=== PATIENT | male | born 1965 | race Caucasian/White ===

== ENCOUNTER 2020-12-01 05:34 | Outpatient (CLI) | payer OTHER ==
[~2020-12-01 05:34] MED LIST: EZET10TA23 PO; FISH OIL PO; HYDROCODON PO; LISI10TA2 PO; LOSA1TAB15 PO; LVT.088T PO; MTF500T PO; [UNRECOGNIZED DRUG - REMARK]
[2020-12-01] MEDS ORDERED: ACHYD1T PO (12:59)
[2020-12-01] MEDS ORDERED: IBUP-1780 PO (12:59)
[2020-12-01] MEDS ORDERED: ASPI-999 PO (12:59)
[2020-12-01] MEDS ORDERED: [UNRECOGNIZED DRUG - CODE] MC (12:59)
== END 2020-12-01 14:54 | disposition home or self-care (01) ==
LOC: PREOP 05:34
PROVIDERS: ATTEND Surgery
DX: Z01.818 Encounter for other preprocedural examination (principal)

== ENCOUNTER 2020-12-06 09:51 | Day surgery (SDC) | payer OTHER ==
[~2020-12-06] VITALS: Ht 177.8 cm; Wt 118.0 kg
[~2020-12-06 09:51] MED LIST changes: +ACHYD1T PO; +ASPI-999 PO; +IBUP-1780 PO; +LACTATED RINGERS 1,000 ML IV ONE; +[UNRECOGNIZED DRUG - CODE] MC
[2020-12-06] MEDS ORDERED: LACTATED RINGERS 1,000 ML IV STA (09:55)
[2020-12-06 10:10] VITALS: BP 153/93
[2020-12-06] MEDS ORDERED: MIDAZOLAM 2 MG/2 ML (VERSED) VIAL ONE (10:11)
[2020-12-06] MEDS ORDERED: PROPOFOL INJECTION 50 ML IV ONE ×2 (10:11→10:36)
[2020-12-06] MEDS ORDERED: LIDOCAINE JELLY 2% 6 ML SYRINGE ONE (10:16)
[2020-12-06] MEDS: LIDOCAINE JELLY 2% 6 ML SYRINGE MM PRN ×2 (10:48→11:27)
[2020-12-06 11:15] VITALS: BP 131/80
[2020-12-06 11:20] VITALS: BP 137/81
[2020-12-06 11:25] VITALS: BP 120/69
--- NOTE | 2020-12-06 11:27 | Progress Note-Pre Operative ---
Pre-Operative Progress Note H&P Reviewed The H&P was reviewed, patient examined and no changes noted. Date Seen by Provider: Dec 06, 2020 Time Seen by Provider: 11:00 Date H&P Reviewed: Dec 06, 2020 Time H&P Reviewed: 11:00 Pre-Operative Diagnosis: screening colo, family hx FLORENCE FLORES MD Dec 06, 2020 11:27
--- NOTE | 2020-12-06 11:29 | Progress Note-Post Operative ---
Post-Operative Progess Note Surgeon (s)/Sewing Inspector (s) Surgeon FLORENCE FLORES MD Sewing Inspector: none Pre-Operative Diagnosis screening colo, family hx Post-Operative Diagnosis chronic stage 2 ext and int hemorrhoids, moderate sigmoid diverticulosis, small polyp asc colon Procedure & Operative Findings Date of Procedure 12/06/20 Procedure Performed/Findings colonoscopy with bx Anesthesia Type mac Estimated Blood Loss Estimated blood loss (mL): minimal Specimens/Packing Specimens Removed asc colon polyp FLORENCE FLORES MD Dec 06, 2020 11:29
[2020-12-06] MEDS ORDERED: ACETAMINOPHEN 325 MG TABLET PO PRN (11:30)
[2020-12-06] MEDS ORDERED: HYDROcodone/APAP 5 MG/325 MG (LORTAB) TAB PO PRN (11:30)
[2020-12-06] MEDS ORDERED: morphine INJ 10 MG/ML 1ML (SYR OR VIAL) IVP PRN ×2 (11:30)
[2020-12-06] MEDS ORDERED: ONDANSETRON 4 MG/2 ML (SDV) Z0FRAN IVP PRN (11:30)
--- NOTE | 2020-12-06 11:30 | Discharge Inst-Surgical ---
D/C Lap Instructions-MARK Follow Up Appt in 2 weeks Activity as tolerated High Fiber Diet 25g or more per day Avoid Alcohol, Caffeine, Spicy [place] and Acid foods. Drink 64 fluid oz or more of fluids per day. Symptoms to Report: Fever over 101 degree F, Nausea/Vomiting If any problems/questions: Contact your physician or go to Emergency Room FLORENCE FLORES MD Dec 06, 2020 11:30
[2020-12-06 11:45] VITALS: BP 100/68
[2020-12-06 11:52] VITALS: BP 100/68
--- NOTE | 2020-12-06 12:03 | Anesthesia-General Post-Op ---
MAC Patient Condition Mental Status/LOC: Same as Preop Cardiovascular: Satisfactory Nausea/Vomiting: Absent Respiratory: Satisfactory Pain: Controlled Complications: Absent Post Op Complications Complications None Follow Up Care/Instructions Patient Instructions None needed. Anesthesiology Discharge Order Discharge Order Patient is doing well, no complaints, stable vital signs, no apparent adverse anesthesia problems. No complications reported per nursing. DAVID DC CRNA Dec 06, 2020 12:03
--- NOTE | 2020-12-06 15:28 | OPERATIVE REPORT ---
DATE OF SERVICE: 12/06/2020 ATTENDING PRIMARY CARE PHYSICIAN: Rosalind RUTH. PREOPERATIVE DIAGNOSIS: Screening colonoscopy. POSTOPERATIVE DIAGNOSES: Mild chronic stage II external and internal hemorrhoids, small polyp of the ascending colon, 2 mm in size. PROCEDURE: Colonoscopy with hot forcep polypectomy SURGEON: Florence Devine MD. ANESTHESIA: Monitored anesthesia care. ESTIMATED BLOOD LOSS: Minimal. FINDINGS: Mild chronic stage II external and internal hemorrhoids, small polyp of the ascending colon, 2 mm in size. DISPOSITION: The patient tolerated the procedure well. INDICATIONS: The patient is a 55-year-old male who we did a colonoscopy in 2014. At that time, we found mild hemorrhoids as well as a small hyperplastic polyp of the rectum 2 mm in size as well as sigmoid diverticulosis. The polyp was consistent with a tubular adenoma. He does have a family history of colon cancer with his father having the disease at age 58. DESCRIPTION OF PROCEDURE: The patient was brought to the endoscopy suite, laid in the left lateral decubitus position. After adequate IV pain and sedative medications and monitored anesthesia care, a digital rectal examination was performed, which revealed mild chronic stage II external and internal hemorrhoids, not actively edematous nor inflamed and no bleeding. Normal sphincter tone was felt and there were no palpable masses. The endoscope was then intubated to the anus and rectum gently insufflated. The endoscope was then advanced through the valves of [place]ir of the rectum with no polyps or any neoplasms identified. We then proceeded through the sigmoid colon where a moderate sigmoid diverticulosis identified. There were no mucosal inflammatory changes to indicate any diverticulitis. The endoscope was then advanced through the remainder of the descending, transverse and ascending colon to the cecum. At the ascending colon, a small polyp approximately 2 mm in size was identified. This was biopsied and destroyed using forceps and electrocautery with visualization of good hemostasis. The endoscope was then advanced to the cecum, which was normal. The endoscope was then slowly withdrawn while taking a second look and suctioning of residual air with no additional findings. The patient tolerated the procedure well. We will recommend a high fiber diet with at least 30 grams of fiber daily as well as significant amounts of water to promote soft stools on a daily basis. The polyp appears to be a benign hyperplastic polyp versus a tubular adenoma and if this was confirmed on pathology, his next screening colonoscopy would be in five years. Job ID: [id number] DocumentID: [id number] Dictated Date: 12/06/2020 11:17:09 Flaker Tender Date: 12/06/2020 14:52:32 Dictated By: FLORENCE DEVINE MD MTDD
== END 2020-12-06 11:55 | disposition home or self-care (01) ==
LOC: ENDO 09:51
PROVIDERS: ATTEND Surgery
DX: Z12.11 Encounter for screening for malignant neoplasm of colon (principal); D12.2 Benign neoplasm of ascending colon; K64.1 Second degree hemorrhoids; I10 Essential (primary) hypertension; E78.5 Hyperlipidemia, unspecified; E03.9 Hypothyroidism, unspecified; M19.90 Unspecified osteoarthritis, unspecified site; E66.9 Obesity, unspecified; Z68.37 Body mass index [BMI] 37.0-37.9, adult; Z79.82 Long term (current) use of aspirin; Z79.899 Other long term (current) drug therapy; Z86.010 Personal history of colon polyps; Z80.0 Family history of malignant neoplasm of digestive organs
CPT/HCPCS: 88305